=== PATIENT | female | born 1995 | race Two or more races ===

== ENCOUNTER 2022-10-31 17:10 | Emergency (ER) | payer OTHER ==
[~2022-10-31] VITALS: Ht 160 cm; Wt 59.0 kg
--- NOTE | 2022-10-31 17:10 | NUR ---
TASH RADerek, SAMANTHA AND [facility] PET team who have already placed the pt on a 5150 hold (danger to self). Pt ambulatory to room 3, calm and cooperative upon arrival. Per report pt expressed suicidal ideation to her sister via text message. Pt states she was drinking (alcohol) last night, states "I get depressed when I drink". Pt denies any SI at this time and verbalizes understanding of plan of care.
--- NOTE | 2022-10-31 17:25 | NUR ---
Blood specimens collected by card stripper, urine specimen collected and brought to lab. Pt is eating dinner at this time. Nursing surveillance supervisor notified for 1:1 sitter. Pending medical clearance and disposition.
[2022-10-31 17:30] LABS: HEMATOCRIT 41.1 % (31.2-41.9); MEAN CORPUSCULAR HEMOGLOBIN 30.7 uug (24.7-32.8); MEAN CORPUSCULAR VOLUME 91.9 fL (75.5-95.3); PLATELET COUNT (AUTO) 307 K/uL (179-408)
[2022-10-31 17:43] LABS: CARBON DIOXIDE 25 mmol/L (21-32); CHLORIDE 101 mmol/L (98-107); CREATININE 0.8 mg/dL (0.6-1.3); GLUCOSE 137 mg/dL (74-106); POTASSIUM 3.4 mmol/L (3.5-5.1); UREA NITROGEN, BLOOD 9 mg/dL (7-18)
[2022-10-31 17:45] LABS: *BILIRUBIN,URIN NEGATIVE (NEGATIVE); *BLOOD, URINE 1+ (NEGATIVE); *CLARITY,URINE CLEAR (CLEAR); *COLOR,URINE YELLOW (YELLOW); *KETONES,URINE NEGATIVE (NEGATIVE); *UROBILINOGEN,URINE 0.2 E.U./dl (NORMAL); LEUKOCYTE ESTERASE ,URINE TRACE (NEGATIVE); NITRITE, URINE NEGATIVE (NEGATIVE); PH,URINE 7.5 (5.0-8.0); UGLUCOSE NEGATIVE (NEGATIVE)
[2022-10-31 17:47] LABS: ETHANOL 180 MG/DL (0-0)
[2022-10-31 17:49] LABS: *URINE HCG, QUAL NEG (NEGATIVE)
[2022-10-31 17:55] LABS: ACETAMINOPHEN 17.2 ug/mL (10-30); ALANINE AMINOTRANSFERASE 26 U/L (14-59); ALKALINE PHOSPHATASE 110 U/L (50-136); ASPARTATE AMINOTRANSFERASE 20 U/L (15-37); BILIRUBIN,DIRECT 0.1 mg/dL (0.0-0.2); BILIRUBIN,TOTAL 0.4 mg/dL (0.2-1.0); TOTAL PROTEIN, SERUM 8.3 g/dL (6.4-8.2)
[2022-10-31 17:59] LABS: *AMPHETAMINE, URINE NEGATIVE (NEGATIVE); *CANNABINOID, URINE NEGATIVE (NEGATIVE); *COCCAINE, URINE NEGATIVE (NEGATIVE); *OPIATE, URINE POSITIVE (NEGATIVE); *PHENCYCLIDINE SCREEN,URINE NEGATIVE (NEGATIVE)
--- NOTE | 2022-10-31 18:23 | NUR ---
Per pt is medically clear. Left message for TATUM Barrios ([phone]).
--- NOTE | 2022-10-31 18:37 | NUR ---
Spoke with Sophie via telephone and she stated she will come in later for eval.
--- NOTE | 2022-10-31 18:50 | NUR ---
Received report from JULIO Gee.
--- NOTE | 2022-10-31 18:50 | NUR ---
Roxanna thompson in [facility] - 10/31/22 at 1918 by LUIS FELIPE Received report from JULIO Gee.
--- NOTE | 2022-10-31 21:33 | NUR ---
Called Sophie Aviles [facility] for psych evaluation.
--- NOTE | 2022-10-31 21:35 | NUR ---
COVID swab sent to lab.
[2022-10-31 22:55] LABS: BACTERIA,URINE NONE SEEN /HPF (NONE SEEN); SQUAMOUS EPITHELIAL CELL,UR NONE SEEN /HPF (NONE SEEN)
--- NOTE | 2022-11-01 00:45 | NUR ---
Sophie at bedside.
--- NOTE | 2022-11-01 01:00 | NUR ---
Sophie took patient off hold.
--- NOTE | 2022-11-01 01:30 | NUR ---
Patient discharged to home in stable condition. A/O x 4. NAD noted. Ambulatory with a steady gait. All belongings with patient. Written and verbal after care instructions given. Patient verbalizes understanding of instructions. Stressed follow up or return to ER for worsening s/s.
[2022-11-01 02:27] VITALS: BP 129/73
== END 2022-11-01 01:30 | disposition home or self-care (01) ==
LOC: ER 17:10
DX: Z04.6 Encounter for general psychiatric examination, requested by authority (principal); R45.851 Suicidal ideations; Z91.51 Personal history of suicidal behavior; F10.10 Alcohol abuse, uncomplicated
CPT/HCPCS: 36415; 84703; 85025; A4663; G0480